=== PATIENT | male | born 1985 | race Caucasian/White ===

== ENCOUNTER 2017-09-10 08:32 | Day surgery (SDC) | payer BC ==
[~2017-09-10 08:32] MED LIST: LIDOCAINE HCL 1% MPF SOL ONE; PROPOFOL 500 MG/50 ML EMU IV ONE
[2017-09-10] MEDS ORDERED: FENTANYL 100MCG/2ML SOL ONE (10:30)
[2017-09-10] MEDS ORDERED: PROPOFOL 500 MG/50 ML EMU IV ONE (10:41)
[2017-09-10] MEDS ORDERED: ONDANSETRON HCL 4 MG/2 ML SOL ONE (10:41)
[2017-09-10 11:32] VITALS: TEMP 98.5; O2SAT 100
[2017-09-10 12:03] VITALS: BP 128/86; PULSE 80; RESP 20
== END 2017-09-10 12:06 | disposition home or self-care (01) ==
LOC: SURG 08:32
PROVIDERS: ATTEND Internal Medicine Gastroenterology
DX: R10.13 Epigastric pain (principal); R19.7 Diarrhea, unspecified; R19.5 Other fecal abnormalities; R19.4 Change in bowel habit; K64.8 Other hemorrhoids; R11.0 Nausea; K22.2 Esophageal obstruction; K44.9 Diaphragmatic hernia without obstruction or gangrene; K31.9 Disease of stomach and duodenum, unspecified; K22.70 Barrett's esophagus without dysplasia
CPT/HCPCS: 43239; 45380; 99001; J2001; J2405; J2704 ×2; J3010